=== PATIENT | female | born 1940 | race Caucasian/White ===

== ENCOUNTER 2024-10-21 09:15 | Inpatient (IN) ==
[2024-10-21] MEDS: 0.9 % SODIUM CHLORIDE 500 ML IV ONE ×2 (10:32→13:04)
[2024-10-21 12:44] LABS: Basophils # (Auto) 0.02 K/mcL (0.00-0.30); Basophils % (Auto) 0.2 % (0.0-2.0); Eosinophils # (Auto) 0 K/mcL (0.00-0.70); Eosinophils % (Auto) 0 % (0.0-7.0); Hematocrit 27.2 % (34.1-44.9); Hemoglobin 8.3 g/dL (11.2-15.7); Lymphocytes # (Auto) 0.80 K/mcL (1.50-4.80); Lymphocytes % (Auto) 6.3 % (15.5-49.0); Mean Corpuscular HGB Conc 30.5 g/dL (31.0-36.0); Monocytes # (Auto) 0.93 K/mcL (0.10-0.90); Monocytes % (Auto) 7.3 % (1.0-12.0); Neutrophils % (Auto) 85.9 % (38.0-78.0); Platelet Count 260 K/mcL (140-440); RBC 3.17 M/mcL (3.59-5.38); WBC 12.8 K/mcL (4.5-11.0)
[2024-10-21 13:42] LABS: Anion Gap 12.0 (8.0-16.0); Blood Urea Nitrogen 14 mg/dL (8-23); Calcium 7.9 mg/dL (8.6-10.4); Carbon Dioxide 23 mmol/L (22-30); Chloride 99 mmol/L (96-108); Glucose 100 mg/dL (70-105); Potassium 3.2 mmol/L (3.3-5.1); Sodium 134 mmol/L (133-145)
[2024-10-21 15:08] LABS: Bacteria,Urine Many /hpf (0); Bilirubin,Urine Negative (Negative); Color,Urine Yellow; Glucose,Urine (UA) Negative (Negative); Ketones,Urine Negative (Negative); Leukocyte Esterase,Urine Negative /uL (Negative); PH,Urine 5.5 (5.0-9.0); Protein,Urine Trace mg/dL (Negative); Specific Gravity,Urine 1.020 (1.000-1.035); Urobilinogen,Urine Normal
[2024-10-21] MEDS: cefTRIAXone 1 GM VIAL IV ONE (15:56)
[2024-10-21] MEDS: POTASSIUM CHLORIDE 20 MEQ TABLET PO ONE (15:56)
[2024-10-21] MEDS ORDERED: ACETAMINOPHEN 325 MG TABLET PO PRN (15:58)
[2024-10-21] MEDS ORDERED: ONDANSETRON 4 MG/2 ML VIAL IV PRN (15:58)
[2024-10-21] MEDS: LACTATED RINGERS 1,000 ML IV SCH (16:26)
[2024-10-21 19:03] LABS: Anion Gap 13.0 (8.0-16.0); Blood Urea Nitrogen 14 mg/dL (8-23); Calcium 8.3 mg/dL (8.6-10.4); Carbon Dioxide 21 mmol/L (22-30); Chloride 95 mmol/L (96-108); Glucose 124 mg/dL (70-105); Potassium 3.6 mmol/L (3.3-5.1); Sodium 129 mmol/L (133-145)
[2024-10-21] MEDS: 0.9 % SODIUM CHLORIDE 10 ML SYRINGE IV SCH (20:42)
[2024-10-21] MEDS: MELATONIN 3 MG TABLET PO SCH (20:42)
[2024-10-21] MEDS: ENOXAPARIN 60 MG/0.6 ML SYRINGE SQ SCH (20:42)
[2024-10-21] MEDS ORDERED: HEPARIN 5,000 UNIT/ML VIAL SQ SCH (21:00)
[2024-10-21] MEDS: SENNOSIDES 1 TABLET PO SCH (21:31)
[2024-10-22 06:12] LABS: Basophils # (Auto) 0.03 K/mcL (0.00-0.30); Basophils % (Auto) 0.3 % (0.0-2.0); Eosinophils # (Auto) 0 K/mcL (0.00-0.70); Eosinophils % (Auto) 0 % (0.0-7.0); Hematocrit 25.8 % (34.1-44.9); Hemoglobin 8.1 g/dL (11.2-15.7); Lymphocytes # (Auto) 0.98 K/mcL (1.50-4.80); Lymphocytes % (Auto) 8.6 % (15.5-49.0); Mean Corpuscular HGB Conc 31.4 g/dL (31.0-36.0); Monocytes # (Auto) 0.78 K/mcL (0.10-0.90); Monocytes % (Auto) 6.8 % (1.0-12.0); Neutrophils % (Auto) 84.1 % (38.0-78.0); Platelet Count 237 K/mcL (140-440); RBC 3.03 M/mcL (3.59-5.38); WBC 11.4 K/mcL (4.5-11.0)
[2024-10-22] MEDS: 0.9 % SODIUM CHLORIDE 500 ML IV ONE (06:12)
[2024-10-22 06:29] LABS: Anion Gap 9.0 (8.0-16.0); Blood Urea Nitrogen 16 mg/dL (8-23); Calcium 8.0 mg/dL (8.6-10.4); Carbon Dioxide 25 mmol/L (22-30); Chloride 98 mmol/L (96-108); Glucose 105 mg/dL (70-105); Potassium 3.8 mmol/L (3.3-5.1); Sodium 132 mmol/L (133-145)
[2024-10-22] MEDS: IBUPROFEN 600 MG TABLET PO PRN (09:27)
[2024-10-22] MEDS: POLYETHYLENE GLYCOL 3350 17 GM PACKET PO SCH (09:27)
[2024-10-22] MEDS: cefTRIAXone 1 GM VIAL IV SCH (09:42)
[2024-10-22] MEDS: 0.9 % SODIUM CHLORIDE 1,000 ML IV SCH (10:50)
[2024-10-23 05:49] LABS: Basophils # (Auto) 0.02 K/mcL (0.00-0.30); Basophils % (Auto) 0.3 % (0.0-2.0); Eosinophils # (Auto) 0.06 K/mcL (0.00-0.70); Eosinophils % (Auto) 0.9 % (0.0-7.0); Hematocrit 26.1 % (34.1-44.9); Hemoglobin 8.1 g/dL (11.2-15.7); Lymphocytes # (Auto) 0.71 K/mcL (1.50-4.80); Lymphocytes % (Auto) 11.1 % (15.5-49.0); Mean Corpuscular HGB Conc 31.0 g/dL (31.0-36.0); Monocytes # (Auto) 0.37 K/mcL (0.10-0.90); Monocytes % (Auto) 5.8 % (1.0-12.0); Neutrophils % (Auto) 81.7 % (38.0-78.0); Platelet Count 250 K/mcL (140-440); RBC 3.11 M/mcL (3.59-5.38); WBC 6.4 K/mcL (4.5-11.0)
[2024-10-23 06:16] LABS: ALT/SGPT 8 U/L (<40); AST/SGOT 12 U/L (<32); Albumin 2.4 gm/dL (3.2-5.2); Albumin/Globulin Ratio 1.0 (1.0-2.3); Alkaline Phosphatase 84 U/L (39-117); Anion Gap 9.0 (8.0-16.0); Bilirubin,Direct < 0.2 mg/dL (0-0.3); Bilirubin,Total < 0.2 mg/dL (0.1-1.0); Blood Urea Nitrogen 15 mg/dL (8-23); Calcium 8.2 mg/dL (8.6-10.4); Carbon Dioxide 23 mmol/L (22-30); Chloride 97 mmol/L (96-108); Globulin 2.4 gm/dL (2.2-3.7); Glucose 87 mg/dL (70-105); Phosphorous 3.5 mg/dL (2.5-4.5); Potassium 4.0 mmol/L (3.3-5.1); Sodium 129 mmol/L (133-145); Triglycerides 107 mg/dL (<150); Uric Acid 3.6 mg/dL (2.5-8.0)
[2024-10-23] MEDS: LEVOTHYROXINE 125 MCG TABLET PO SCH (08:51)
[2024-10-23] MEDS: SODIUM CHLORIDE 1 GM TABLET PO SCH (08:52)
[2024-10-23] MEDS: [UNRECOGNIZED DRUG - OTHER] INH SCH (09:59)
[2024-10-23] MEDS: FLUTICASONE FUROATE INH SCH (09:59)
[2024-10-24 07:09] LABS: ALT/SGPT 10 U/L (<40); AST/SGOT 13 U/L (<32); Albumin 2.4 gm/dL (3.2-5.2); Albumin/Globulin Ratio 1.0 (1.0-2.3); Alkaline Phosphatase 81 U/L (39-117); Anion Gap 9.0 (8.0-16.0); Bilirubin,Direct < 0.2 mg/dL (0-0.3); Bilirubin,Total < 0.2 mg/dL (0.1-1.0); Blood Urea Nitrogen 12 mg/dL (8-23); Calcium 8.3 mg/dL (8.6-10.4); Carbon Dioxide 25 mmol/L (22-30); Chloride 102 mmol/L (96-108); Globulin 2.3 gm/dL (2.2-3.7); Glucose 82 mg/dL (70-105); Phosphorous 3.8 mg/dL (2.5-4.5); Potassium 3.8 mmol/L (3.3-5.1); Sodium 136 mmol/L (133-145); Triglycerides 116 mg/dL (<150); Uric Acid 3.2 mg/dL (2.5-8.0)
[2024-10-24 12:48] VITALS: TEMP 97.4; O2SAT 100
== END 2024-10-24 13:32 | DRG 299 ==
LOC: ED 09:15 → MEDSUR 15:59
PROVIDERS: ADMIT Student in an Organized Health Care Education/Training Program; ATTEND Internal Medicine